=== PATIENT | female | born 1960 | race Caucasian/White ===

== ENCOUNTER → 2018-03-15 | Outpatient (CLI) | payer OTHER ==
[~2018-03-15] MED LIST: ASPI325 PO; ATOR80 PO; BUSP10 PO; CALCA500CH PO; CARBI50 PO; CLON1 PO; CLOP75 PO; Carbidopa-Levo1 EAC1 PO; DIPH50 PO; DOCU100 PO; DULO60 PO; ENTA200 PO; ESOM20 PO; FISH1000 PO; FURO100EL PO; GABA300 PO; HYDACE5 PO; HYDACE7.5 PO; Hydrocodone-Ap1 EA20 PO; ISOMON20 PO; LEVCAR2510 PO; LEVSOD25 PO; LISHYD2012 PO; LITH300ER PO; LORA1 PO; METCAR500 PO; METO100ER PO; MIRT30 PO; NITRSPRAY SL; OMEP20ER PO; OXYC5; POTA10T PO; POTCHL20ER PO; PRAM.5 PO; PRAZ1 PO; PREG150 PO; PROM25 PO; RANO500T PO; SUMA25 PO; TRIHYD253B PO; VALA500 PO; VENL75ER PO; ZOLP5 PO; Zofran Odt4 MG SL; [UNRECOGNIZED DRUG - REMARK]
[2018-03-15 18:45] LABS: Bilirubin, Urine Neg (Neg); Blood, Urine Neg (Neg); Glucose Qualitative, Urine Neg (Neg); Ketones, Urine Neg (Neg); Leukocyte Esterase, Urine 1+ (Neg); Nitrite, Urine Neg (Neg); Protein, Urine Neg (Neg); Urobilinogen, Urine NORM (Normal)
[2018-03-15 18:55] LABS: Appearance, Urine Clear (Clear); Color, Urine Pale Yellow (P-Yellow)
[2018-03-15 19:08] LABS: Bacteria Not Seen /hpf; Red Blood Cells, Urine Not Seen /hpf (0-2); Squamous Epithelial Cells Not Seen /hpf (Few); White Blood Cells, Urine Not Seen /hpf (0-5)
== END | disposition home or self-care (01) ==
LOC: LAB SHORT 16:20 → LAB 16:20
PROVIDERS: Family Medicine
DX: R30.9 Painful micturition, unspecified (principal)
CPT/HCPCS: 81001

== ENCOUNTER 2019-03-20 13:13 | Emergency (ER) | payer OTHER ==
[~2019-03-20] VITALS: Ht 160 cm; Wt 117.9 kg
[2019-03-20 13:37] LABS: BASOPHILS ABSOLUTE AUTO 0.06 K/mm3 (0.00-0.23); BASOPHILS PERCENT AUTO 1 % (0-2); EOSINOPHILS ABSOLUTE AUTO 0.18 K/mm3 (0.00-0.68); EOSINOPHILS PERCENT AUTO 2 % (0-6); Hematocrit 43.2 % (33.0-51.0); Hemoglobin 14.3 g/dL (11.5-16.0); IMMATURE GRAN ABSOLUTE AUTO 0.03 K/mm3 (0.00-0.10); IMMATURE GRAN PERCENT AUTO 0 % (0-1); LYMPHOCYTES PERCENT AUTO 27 % (21-46); MONOCYTES ABSOLUTE AUTO 0.62 K/mm3 (0.16-1.47); MONOCYTES PERCENT AUTO 6 % (4-13); Mean Corpuscular HGB 29.6 pg (26.0-34.0); Mean Corpuscular HGB Conc 33.1 g/dL (31.5-36.5); Mean Corpuscular Volume 89 fL (80-100); Mean Platelet Volume 9.8 fL (9.1-12.4); NEUTROPHILS ABSOLUTE AUTO 7.42 K/mm3 (1.96-9.15); NEUTROPHILS PERCENT AUTO 66 % (41-73); Platelet Count 227 K/mm3 (150-400); RDW Coefficient Variation 12.5 % (11.7-14.2); RDW Standard Deviation 40.8 fL (35.1-46.3); Red Blood Cell Count 4.83 M/mm3 (3.80-5.20); White Blood Cell Count 11.31 K/mm3 (4.00-11.30)
[2019-03-20 13:58] LABS: Alanine Aminotransfer (ALT/SGP 12 U/L (12-78); Albumin/Globulin Ratio 1.1 (0.8-1.8); Alk Phos 102 U/L (50-136); Anion Gap 9 mmol/L (6-16); Aspartate Aminotrans (AST/SGOT 22 U/L (12-37); Bilirubin, Total 0.3 mg/dL (0.1-1.0); Blood Urea Nitrogen 10 mg/dL (8-24); CO2, Blood 27 mmol/L (21-32); Calcium, Blood 9.2 mg/dL (8.5-10.1); Chloride, Blood 101 mmol/L (98-108); Creatinine, Blood 0.91 mg/dL (0.40-1.00); Globulin, Blood 3.7 g/dL (2.2-4.0); Glomerular Filtration Rate >60 (60-); Glucose, Blood 201 mg/dL (70-99); Potassium, Blood 2.9 mmol/L (3.5-5.5); Sodium, Blood 137 mmol/L (136-145); Total Protein, Blood 7.7 g/dL (6.4-8.2); Troponin I <0.015 ng/mL (0.000-0.040)
[2019-03-20] MEDS ORDERED: Synthroid88 MCG PO (14:12)
[2019-03-20] MEDS ORDERED: MIRT15 PO (14:15)
[2019-03-20] MEDS ORDERED: K-Dur 20 meq T20 MEQ PO (14:25)
== END 2019-03-20 14:44 | disposition home or self-care (01) ==
LOC: ER 13:13
PROVIDERS: Internal Medicine
DX: R55 Syncope and collapse (principal); E87.6 Hypokalemia; Z79.899 Other long term (current) drug therapy; Z79.82 Long term (current) use of aspirin; F32.9 Major depressive disorder, single episode, unspecified
CPT/HCPCS: 71045; 80053; 84484; 85025; 85379; 93005; 93010; 96374; 99284-25; J2405

== ENCOUNTER → 2019-03-28 | Outpatient (CLI) | payer OTHER ==
[~2019-03-28] MED LIST changes: +K-Dur 20 meq T20 MEQ PO; +MIRT15 PO; +Synthroid88 MCG PO
== END ==
LOC: LAB SHORT 12:00 → LAB 12:00
DX: N95.2 Postmenopausal atrophic vaginitis (principal); B37.2 Candidiasis of skin and nail
CPT/HCPCS: 87070; 87205

== ENCOUNTER → 2020-11-01 | Outpatient (CLI) | payer OTHER ==
[2020-11-02 18:16] LABS: Bun/Creatinine Ratio 19.4 (12.0-20.0); Calcium, Blood 9.8 mg/dL (8.5-10.1); Creatinine, Blood 1.03 mg/dL (0.40-1.00); Potassium, Blood 3.5 mmol/L (3.5-5.5)
== END | disposition home or self-care (01) ==
LOC: LAB SHORT 15:40 → LAB 15:40
PROVIDERS: Family Medicine
DX: E11.37X9 Type 2 diabetes mellitus with diabetic macular edema, resolved following treatment, unspecified eye (principal); E87.6 Hypokalemia
CPT/HCPCS: 80048; 83036

== ENCOUNTER → 2021-04-12 | Outpatient (CLI) | payer OTHER | END | disposition home or self-care (01) | LOC: PLD 10:30 → LAB SHORT 10:30 | DX: N39.0 Urinary tract infection, site not specified (principal) | CPT/HCPCS: 87086 ==

== ENCOUNTER 2023-04-02 07:31 | Day surgery (SDC) | payer OTHER ==
[~2023-04-02] VITALS: Ht 157.5 cm; Wt 87.0 kg
[~2023-04-02 07:31] MED LIST changes: +ASPIR 8181 M1 PO; +DYAZIDE 37.5-21 EACH PO; +Imitrex100 MG PO; +LEVOTHYROXINE100 M10 PO; +METF500 PO; +NITR.4SL SL
--- NOTE | 2023-04-02 08:30 | NUR ---
Ambulatory in Day Surgery History, Chart, Medications and Allergies reviewed before start of procedure.Patient confirms NPO status and agrees with scheduled surgery. Patient confirms NPO status and agrees with scheduled surgery. Patient States Post-Procedure ride home has been arranged.
[2023-04-02 08:35] VITALS: BP 159/88
--- NOTE | 2023-04-02 10:01 | NUR ---
04/02/23 1001 Patsy Ny History, Chart, Medications and Allergies reviewed before start of procedure. DR DIMAS PROVIDING ANESTHESIA
[2023-04-02 10:41] VITALS: BP 120/84
[2023-04-02 10:58] VITALS: BP 121/84
--- NOTE | 2023-04-02 11:03 | NUR ---
Patient up to Ambulate independently. Gait steady. Discharge instructions reviewed with patient. Patient verbalizes understanding. Copy given to patient to take home. Patient States Post-Procedure ride home has been arranged. Discharged via wheelchair to private car for ride home.
== END 2023-04-02 11:03 | disposition home or self-care (01) ==
LOC: ORSCMMR 07:31 → ORD 09:00 → ORSCMMR 09:00
PROVIDERS: Internal Medicine Gastroenterology
PROC: 0DBN8ZX Excision of Sigmoid Colon, Via Natural or Artificial Opening Endoscopic, Diagnostic (ICD-10-PCS; principal; 2023-04-02 09:00)
DX: Z12.11 Encounter for screening for malignant neoplasm of colon (principal); Z86.010 Personal history of colon polyps; K63.5 Polyp of colon; I25.10 Atherosclerotic heart disease of native coronary artery without angina pectoris; G47.33 Obstructive sleep apnea (adult) (pediatric); K21.9 Gastro-esophageal reflux disease without esophagitis; E11.9 Type 2 diabetes mellitus without complications; E03.9 Hypothyroidism, unspecified; G20 Parkinson's disease; F41.8 Other specified anxiety disorders; E66.9 Obesity, unspecified; Z68.35 Body mass index [BMI] 35.0-35.9, adult; Z79.84 Long term (current) use of oral hypoglycemic drugs; Z79.899 Other long term (current) drug therapy; Z79.82 Long term (current) use of aspirin
CPT/HCPCS: 82947; 88305; J2704; J7120

== ENCOUNTER → 2023-12-25 | Outpatient (CLI) | payer OTHER ==
[2024-01-01 05:37] LABS: HOURS COLLECTED Random hr; TOTAL PROTEIN,URINE-PER VOLUME 7 mg/dL; TOTAL VOLUME Random mL
== END ==
LOC: LAB 14:13 → LAB SHORT 14:13 → EDSTATUS 12-24 13:50 → LAB FUT 12-24 13:50
PROVIDERS: Internal Medicine Nephrology
DX: N18.30 Chronic kidney disease, stage 3 unspecified (principal); D63.1 Anemia in chronic kidney disease; N25.81 Secondary hyperparathyroidism of renal origin; E55.9 Vitamin D deficiency, unspecified; R76.9 Abnormal immunological finding in serum, unspecified; R94.5 Abnormal results of liver function studies; R94.6 Abnormal results of thyroid function studies
CPT/HCPCS: 84156; 84166; 86335

== ENCOUNTER → 2024-07-18 | Outpatient (CLI) | payer OTHER ==
[2024-07-18 16:32] LABS: Hemoglobin 13.3 g/dL (11.5-16.0); Mean Corpuscular HGB 29.4 pg (26.0-34.0); Mean Corpuscular HGB Conc 33.3 g/dL (31.5-36.5); Mean Corpuscular Volume 88 fL (80-100); Mean Platelet Volume 10.6 fL (9.1-12.4); Platelet Count 213 K/mm3 (150-400); RDW Coefficient Variation 12.2 % (11.7-14.2); RDW Standard Deviation 39.5 fL (35.1-46.3); Red Blood Cell Count 4.53 M/mm3 (3.80-5.20); White Blood Cell Count 10.63 K/mm3 (4.00-11.30)
[2024-07-18 18:47] LABS: Albumin, Blood 3.8 g/dL (3.4-5.0); Albumin/Globulin Ratio 1.2 (0.8-1.8); Bilirubin, Total 0.4 mg/dL (0.1-1.0); Bun/Creatinine Ratio 18.5 (12.0-20.0); Calcium, Blood 9.5 mg/dL (8.5-10.1); Creatinine, Blood 0.7 mg/dL (0.40-1.00); Globulin, Blood 3.3 g/dL (2.2-4.0); Potassium, Blood 3.8 mmol/L (3.5-5.5); Thyroid Stimulating Hormone 2.74 uIU/mL (0.360-4.800); Total Protein, Blood 7.1 g/dL (6.4-8.2)
== END ==
LOC: LAB 11:35 → LAB SHORT 11:35
DX: J02.9 Acute pharyngitis, unspecified (principal); E03.9 Hypothyroidism, unspecified
CPT/HCPCS: 80053; 84443; 85027; 86308

== ENCOUNTER 2024-11-28 06:15 | Day surgery (SDC) | payer OTHER ==
[~2024-11-28] VITALS: Ht 152.4 cm; Wt 96.1 kg
[~2024-11-28 06:15] MED LIST changes: -CALCA500CH PO; +CARBIDOPA-LEVO1 EA19 PO; +Calcium Carbon500 MG PO; -Carbidopa-Levo1 EAC1 PO; +METF500C PO; -METO100ER PO; +METO50ER PO
[2024-11-28] MEDS ORDERED: propofoL 40 ML IV ONE (06:25)
[2024-11-28] MEDS ORDERED: Lactated Ringer's 1,000 ML IV SCH (06:30)
[2024-11-28 06:55] VITALS: BP 163/84
[2024-11-28] MEDS ORDERED: Benzocaine Oral Spray 0.5ML UD ONE (07:00)
--- NOTE | 2024-11-28 07:41 | NUR ---
11/28/24 0741 Patsy Ny History, Chart, Medications and Allergies reviewed before start of procedure.DR BELCHER PROVIDING ANESTHESIA
[2024-11-28 07:48] VITALS: BP 143/74
--- NOTE | 2024-11-28 08:14 | NUR ---
Patient up to Ambulate independently. Gait steady. Discharge instructions reviewed with patient. Patient verbalizes understanding. Copy given to patient to take home. Discharged via wheelchair to private car for ride home. ALL BELONGINGS RETURNED TO PATIENT.
== END 2024-11-28 22:55 | disposition home or self-care (01) ==
LOC: ORSCMMR 06:15 → ORD 07:30 → ORSCMMR 22:55
PROVIDERS: Internal Medicine Gastroenterology
PROC: 0DB58ZX Excision of Esophagus, Via Natural or Artificial Opening Endoscopic, Diagnostic (ICD-10-PCS; principal; 2024-11-28 07:30)
PROC: 0DB48ZX Excision of Esophagogastric Junction, Via Natural or Artificial Opening Endoscopic, Diagnostic (ICD-10-PCS; principal; 2024-11-28 07:30)
DX: K21.9 Gastro-esophageal reflux disease without esophagitis (principal); G47.30 Sleep apnea, unspecified; G20.A1 Parkinson's disease without dyskinesia, without mention of fluctuations; I25.10 Atherosclerotic heart disease of native coronary artery without angina pectoris; I25.2 Old myocardial infarction; E11.9 Type 2 diabetes mellitus without complications; Z79.82 Long term (current) use of aspirin; Z79.84 Long term (current) use of oral hypoglycemic drugs; Z79.899 Other long term (current) drug therapy
CPT/HCPCS: 82947; 88305; A9270; J2704; J7120